=== PATIENT | male | born 1955 | race American Indian/Alaskan Native ===

== ENCOUNTER 2018-08-01 03:45 | Emergency (ER) | payer OTHER ==
[2018-08-01 04:07] VITALS: BP 173/85
--- NOTE | 2018-08-01 05:55 | XRay Report ---
PROCEDURE: XR SPINE CERVICAL 2-3V TECHNIQUE: 4 views cervical spine HISTORY: neck pain COMPARISONS: None FINDINGS: No acute cervical spine fracture. Straightening of the cervical spine with preservation of vertebral body heights and intervertebral disc spaces. Scattered mild endplate spondylosis in the mid to lower cervical spine. Prevertebral soft tissues are within normal limits. Incomplete evaluation of the lung apices is unremarkable. IMPRESSION: Scattered mild mid to lower cervical sequela of disc degeneration without acute finding. This document is electronically signed by Cristian Pompa MD., August 01 2018 05:53:17 AM ET
[2018-08-01] MEDS ORDERED: MOTRIN PO ONE (07:23)
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
== END 2018-08-01 07:47 | disposition home or self-care (01) ==
LOC: ED 03:45
DX: S13.4XXA Sprain of ligaments of cervical spine, initial encounter (principal); I10 Essential (primary) hypertension; E11.9 Type 2 diabetes mellitus without complications; Z95.5 Presence of coronary angioplasty implant and graft; Z88.2 Allergy status to sulfonamides; Z79.84 Long term (current) use of oral hypoglycemic drugs; V49.49XA Driver injured in collision with other motor vehicles in traffic accident, initial encounter; Y93.89 Activity, other specified; Y92.410 Unspecified street and highway as the place of occurrence of the external cause; Y99.8 Other external cause status
CPT/HCPCS: 72040